=== PATIENT | male | born 1970 | race Caucasian/White ===

== ENCOUNTER → 2019-04-23 | Outpatient (CLI) | payer OTHER ==
[~2019-04-23] MED LIST: ASPI-482 PO; DEXT10TA23 PO; IBUP-1027 PO; LISI2.5T PO; SERT25TA PO; SIMV10TA3 PO; ZOLP5TAB PO
== END | disposition home or self-care (01) ==
LOC: PCVCCLINIC 14:20
PROVIDERS: ATTEND Internal Medicine
DX: R42 Dizziness and giddiness (principal); I10 Essential (primary) hypertension; E78.5 Hyperlipidemia, unspecified; G44.029 Chronic cluster headache, not intractable
CPT/HCPCS: 93005; G0463

== ENCOUNTER → 2019-05-28 | Outpatient (CLI) | payer OTHER ==
--- NOTE | 2019-05-28 15:10 | PCVCIMAG ---
EXAM: BILATERAL CAROTID DUPLEX INDICATION: Carotid Occlusive Disease. FINDINGS: Doppler Measurements (centimeters per second): RIGHT: Peak CCA-85, Peak ECA-83, Diastolic ICA-16, Peak ICA-89, ICA/CCA Ratio-1.1. LEFT: Peak CCA-90, Peak ECA-10, Diastolic ICA-28, Peak ICA-66, ICA/CCA Ratio-0.7. RIGHT CAROTID: The carotid bulb has no significant plaque. The proximal internal carotid artery shows no significant stenosis. The common carotid artery shows no significant stenosis. The external carotid artery shows no significant stenosis. LEFT CAROTID: The carotid bulb has no significant plaque. The proximal internal carotid artery shows no significant stenosis. The common carotid artery shows no significant stenosis. The external carotid artery shows no significant stenosis. Antegrade flow in both vertebral arteries. IMPRESSION: No significant stenosis of the right internal carotid artery with no significant plaque. No significant stenosis of the left internal carotid artery with no significant plaque. LOC:[place] [id number]
== END | disposition home or self-care (01) ==
LOC: PCVCIMAG 14:33
PROVIDERS: ATTEND Internal Medicine
DX: R42 Dizziness and giddiness (principal); E78.5 Hyperlipidemia, unspecified
CPT/HCPCS: 93880